=== PATIENT | female | born 1945 | race Caucasian/White ===

== ENCOUNTER → 2023-07-22 07:06 | Outpatient (REF) | payer MEDICARE, SELFPAY ==
[2023-07-22 09:05] LABS: % Basophils 0.7 % (0-2); % Eosinophils 3.7 % (0-6); % Immature Granulocytes 0.1 % (0-0.5); % Lymphocytes 28.7 % (20.5-51.1); % Monocytes 8.4 % (1.7-9.3); % Neutrophils 58.4 % (42.2-75.2); Absolute Basophils 0.1 10^3/uL (0-0.2); Absolute Eosinophils 0.3 10^3/uL (0-0.7); Absolute Lymphocytes 1.9 10^3/uL (1.2-3.4); Absolute Monocytes 0.6 10^3/uL (0.1-0.6); Absolute Neutrophils 3.9 10^3/uL (1.4-6.5); Hematocrit 36.7 % (37.0-47.0); Hemoglobin 11.8 g/dL (12.0-16.0); Mean Corp Hgb Conc. 32.2 g/dL (33.0-37.0); Mean Corpuscular Hgb 27.8 pg (27.0-31.0); Mean Corpuscular Volume 86.4 fL (81.0-99.0); Mean Platelet Volume 10.7 fL (7.4-10.4); Nucleated Red Blood Cells % 0 %; Platelet Count 362 10^3/uL (130-400); Red Blood Cell Count 4.25 10^6/uL (4.20-5.40); Red Cell Dist. Width 13.3 % (11.5-14.5); White Blood Cell Count 6.7 10^3/uL (4.8-10.8)
[2023-07-22 10:00] LABS: TSH 0.13 uIU/ml (0.47-4.68)
== END ==
LOC: REG 07:06
PROVIDERS: ATTENDING PHYSICIAN Internal Medicine
DX: I10 Essential (primary) hypertension (principal)
CPT/HCPCS: 36415; 84443; 85025

== ENCOUNTER → 2023-08-16 07:46 | Outpatient (REF) | payer MEDICARE, SELFPAY ==
[2023-08-16 09:06] LABS: ALT (SGPT) 15 U/L (0-35); AST (SGOT) 27 U/L (14-36); Alkaline Phosphatase 94 U/L (38-126); Blood Urea Nitrogen 21 mg/dl (7-17); Carbon Dioxide 28 mmol/L (22-30); Chloride 102 mmol/L (98-107); Glucose 97 mg/dl (70-99); HDL Cholesterol 65 mg/dl; LDL Cholesterol, Calculated 126 mg/dl; Potassium 3.8 mmol/L (3.5-5.1); Sodium 138 mmol/L (135-145); Total Bilirubin 0.5 mg/dl (0.2-1.3); Total Cholesterol 214 mg/dl (50-199); Total Protein 7.5 g/dl (6.3-8.2); Triglyceride 118 mg/dl (10-149); Very Low Density Lipoprotein 23 mg/dl (0-30); eGFR 58.39
== END ==
LOC: REG 07:46
PROVIDERS: ATTENDING PHYSICIAN Internal Medicine Cardiovascular Disease
DX: I10 Essential (primary) hypertension (principal)
CPT/HCPCS: 36415; 80053; 80061

== ENCOUNTER 2023-09-05 04:05 | Emergency (ER) | payer MEDICARE, SELFPAY ==
[2023-09-05 04:08] VITALS: BP 115/76
[2023-09-05 04:44] LABS: COVID-19 Antigen Negative (Negative)
--- NOTE | 2023-09-05 04:48 | ED.GENMED ---
History of Present Illness
<NIA Murray - Last Filed: 09/05/23 05:17>
General
Chief Complaint: Cold/Flu/URI Symptoms
Source: patient and spouse
Exam Limitations: none
Time Seen by Provider: 09/05/23 04:23
Travel History
Have you had any contact with someone who has COVID-19?: No
Do you have any symptoms of coronavirus? Fever > 100 degrees, chills, cough, shortness of breath, sore throat, loss of taste or smell, muscle aches, or headache?: No
History of Present Illness
History of Present Illness:
This is a 78 YO F with PMH of hypothyroidism managed with Levothyroxine and HTN managed with Amlodipine presenting here today for constant productive cough x 4 days. Pt states her symptoms started four days ago, including a productive cough and
congestion. Pt describes the mucus as yellow. She tried taking Delsym without relief. She complains of diarrhea after taking Delsym. She did not take Tylenol or Motrin. Denies CP, SOB, N and V. Denies abdominal pain.
Pt reports her had the same symptoms, but less severe, which resolved with Delsym over the past week.
Review of Systems
<NIA Murray - Last Filed: 09/05/23 05:17>
Review of Systems
Constitutional: Reports fever
EENT: Reports sore throat
Respiratory: Reports cough
Cardiac: Reports no symptoms
ABD/GI: Reports diarrhea
: Reports no symptoms
Musculoskeletal: Reports no symptoms
Skin: Reports no symptoms
Neurological: Reports no symptoms
Endocrine: Reports no symptoms
Hematologic/Lymphatic: Reports no symptoms
Psychiatric: Reports no symptoms
Phy Exam
<NIA Murray - Last Filed: 09/05/23 05:17>
Physical Exam
Physical Exam:
Rhonchi heard in left lower lobe. Normal S1 and S1, no murmurs.
General Physical Exam
General Presentation: well appearing
General age: appears stated age
General Habitus: normal
General Mental: alert
General Hydration: appears well hydrated
Cardiovascular Exam
Cardiovascular Exam: regular rate/rhythm
Pulmonary Exam
Cough: productive cough
Breath Sounds: Rhonchi: left lower (LL Lobe)
Course
<Alexia Lang [facility] - Last Filed: 09/05/23 05:17>
Orders/Labs/Results
Orders:
Orders
09/05/23 04:16
COVID-19 Antigen Urgent
Source: Nasal Swab
09/05/23 04:44
CR Chest - 2 Views Urgent
Comment:
Reason For Exam: COUGH, FEVER X 4 DAYS
09/05/23 05:02
Acetaminophen [Tylenol] 650 mg PO NOW STA
Ipratropium/Albuterol Sulfate [Duoneb] 3 ml INH R NOW STA
09/05/23 05:56
Sputum Culture [Respiratory Culture/Gram Stain] Urgent
YARA Source: Sputum
Specimen Description:
Date Specimen was Collected: 09/05/23
Time Specimen was Collected: 05:04
09/05/23 06:27
Azithromycin [Zithromax] 500 mg PO NOW STA
Vital Signs
Initial and Last Documented VS:
Initial Vital Signs
Temp Pulse Resp BP Pulse Ox
100.5 F H 115 18 115/76 93
09/05/23 04:08 09/05/23 04:08 09/05/23 04:08 09/05/23 04:08 09/05/23 04:08
Last Documented Vital Signs
Temp Pulse Resp BP Pulse Ox
97.8 F 97 18 113/65 93
09/05/23 06:05 09/05/23 06:05 09/05/23 04:08 09/05/23 06:00 09/05/23 06:00
<Shari Acosta DO - Last Filed: 09/05/23 06:33>
Orders/Labs/Results
Orders:
Orders
09/05/23 04:16
COVID-19 Antigen Urgent
Source: Nasal Swab
09/05/23 04:44
CR Chest - 2 Views Urgent
Comment:
Reason For Exam: COUGH, FEVER X 4 DAYS
09/05/23 05:02
Acetaminophen [Tylenol] 650 mg PO NOW STA
Ipratropium/Albuterol Sulfate [Duoneb] 3 ml INH R NOW STA
09/05/23 05:56
Sputum Culture [Respiratory Culture/Gram Stain] Urgent
YARA Source: Sputum
Specimen Description:
Date Specimen was Collected: 09/05/23
Time Specimen was Collected: 05:04
09/05/23 06:27
Azithromycin [Zithromax] 500 mg PO NOW STA
Vital Signs
Initial and Last Documented VS:
Initial Vital Signs
Temp Pulse Resp BP Pulse Ox
100.5 F H 115 18 115/76 93
09/05/23 04:08 09/05/23 04:08 09/05/23 04:08 09/05/23 04:08 09/05/23 04:08
Last Documented Vital Signs
Temp Pulse Resp BP Pulse Ox
97.8 F 97 18 113/65 93
09/05/23 06:05 09/05/23 06:05 09/05/23 04:08 09/05/23 06:00 09/05/23 06:00
<NIA Murray - Last Filed: 09/05/23 05:17>
MDM/Problems Addressed
Differential Diagnosis Includes:
COVID, FLU, Pneumoniae, Upper respiratory tract infection, Bronchitis
MDM/Problems Addressed:
Cold symptoms/cough x 4 days
<NIA Murray - Last Filed: 09/05/23 05:17>
*Critical Care Note
Total Time (30-74mins, 75-104mins- exclusive of procedures): Not Applicable
<Shari Acosta DO - Last Filed: 09/05/23 06:33>
*Radiology
Radiology exam reviewed: preliminary read by ED provider (Chest x-ray consistent with right lower lobe infiltrate, new compared to previous.)
*Pulse Oximetry
Patient hypoxic: no
ED Attending Note
<NIA Murray - Last Filed: 09/05/23 05:17>
-
Portions of this chart may have been created with voice recognition software.� Occasional wrong word or��sound alike� substitutions may have occurred due to the inherent limitations of voice recognition software.
<Shari Acosta DO - Last Filed: 09/05/23 06:33>
ED Attending Note
Patient seen and examined by attending physician: Yes
I performed the substantive portion of visit, reviewed & personally made and approve the management plan that is documented in note by myself or CAMI.: Yes
I performed a history and physical exam of patient and discussed management with resident, I reviewed resident's note and agree with documented findings and plan of care.: Yes
ED Attending Note:
This is a 78-year-old woman who has history of hypertension, hypothyroidism who complains of 4-day history of URI symptoms, nasal congestion, rhinorrhea, mild sore throat, recurrent hacking cough occasionally productive of yellowish phlegm. She has
had intermittent chills and aches but no chest pain, no abdominal pain, no shortness of breath, no dizziness or lightheadedness.
Her had similar URI symptoms that began several days prior to onset of her symptoms. He has since recovered.
She presents to the ED tonight for evaluation stating 'I am tired of coughing'
No prior history of asthma nor COPD. Lifelong non-smoker. No recent travel nor recent antibiotic use. She denies leg pain or swelling. No dyspnea on exertion.
Cough has been persistent throughout the day and not necessarily worse at nighttime.
No significant relief with [id number] cough syrup.
GENERAL: 78-year-old woman appears her stated age, awake and alert, pleasant, appears in no acute distress. Rare brief nonproductive cough is noted. Able to speak in full sentences. is accompanying. Low-grade fever noted.
EYE: pupils equal and reactive. anicteric
NECK: Supple, nontender, no meningismus, no significant adenopathy.
ENT: posterior pharynx has scant punctate injection without edema nor exudate, scant clear postnasal drip is noted, oral mucosa is moist. TM clear b/l, nares have mildly boggy turbinates with mild clear to pearly rhinorrhea.
CARDIAC: Regular rate and rhythm. no murmur.
LUNGS: no acute respiratory distress, moderate left basilar rhonchi, fine rhonchi right base.
ABDOMEN: Soft, nondistended, without focal tenderness, no r/g, no cvat. normoactive BS.
NEUROLOGICAL: Alert and oriented x3, no focal neuro deficits. Gait is steady.
SKIN: Warm and dry, normal color, skin intact. No rash.
MUSCULOSKELETAL: No C/C/E. peripheral pulses are full and equal b/l. No palpable tenderness.
PSYCH: Normal and appropriate interaction.
History and physical exam concerning for left lower lobe pneumonia.
Rapid COVID is pending. Will give Tylenol for fever
, DuoNeb nebulizer for cough and will check chest x-ray.
09/05/2023 0629 AM
Patient feeling improved after nebulizer treatment, improvement in cough.
Chest x-ray consistent with streaky infiltrate right lower lobe/posteriorly.
Will initiate a course of Zithromax for community-acquired pneumonia. Will add albuterol inhaler for as needed cough.
Recommend she stay well-hydrated on a daily basis, Tylenol as needed for fever.
Prompt follow-up with PCP for recheck.
Return precautions discussed.
Discharge Plan
Departure
Patient Disposition: Home (Routine Discharge)
Date of Disposition: 09/05/23
Time of Disposition: 06:30
Patient with high blood pressure during this ER visit?: No
Condition: Good
Discharge Problem:
Community acquired pneumonia
Instructions: Community-acquired pneumonia in adults
Prescriptions:
New
azithromycin [Zithromax TRI-ELIZABETH] 500 mg tablet
500 mg PO DAILY 3 Days Qty: 3 0RF
albuterol sulfate [ProAir HFA] 90 mcg/actuation Hfa Aerosol Inhaler
2 puff INHALATION Q4HPRN PRN (Reason: shortness of breath/cough) Qty: 90 0RF
Rx Instructions:
Dispense with spacer
No Action
amlodipine 5 mg Tablet
5 mg PO DAILY
levothyroxine 75 mcg Tablet
75 mcg PO DAILY
Referrals:
PRIVATE,PHYSICIAN [Family Provider] - Call in 1-3 days for appt
Interventions
Interventions:
*Risk Screen - Suicide Last Done: 09/05/23 04:08
*General Assessment Last Done: 09/05/23 04:08
*Neglect/Abuse Screening Last Done: 09/05/23 04:08
ED- Fall Risk Assessment Last Done: 09/05/23 04:08
*ED COVID-19 Vaccine History Last Done: 09/05/23 04:08
ED- Pulmonary Assessment Last Done: 09/05/23 06:06
Discharge Date and Time
Print Language: CENTRAL AFRICAN
[2023-09-05 05:01] VITALS: BMI 19.0
[2023-09-05] MEDS: DUONEB 3 ML INH (05:13)
[2023-09-05] MEDS: TYLENOL 650 MG PO (05:13)
[2023-09-05 05:58] VITALS: BP 114/57
[2023-09-05 06:00] VITALS: BP 113/65
[2023-09-05] MEDS: ZITHROMAX 500 MG PO (06:51)
== END 2023-09-05 06:57 | disposition home or self-care (01) ==
LOC: EMR 04:05
PROVIDERS: EMERGENCY PHYSICIAN Emergency Medicine
DX: J18.9 Pneumonia, unspecified organism (principal); R05.9 Cough, unspecified; J34.89 Other specified disorders of nose and nasal sinuses; Z11.52 Encounter for screening for COVID-19
CPT/HCPCS: 99283; 94640; 71046; 87070; 87205; 87811

== ENCOUNTER → 2023-10-22 07:56 | Outpatient (REF) | payer MEDICARE, SELFPAY | LOC: HWRAD 07:56 | PROVIDERS: ATTENDING PHYSICIAN Internal Medicine | DX: I10 Essential (primary) hypertension (principal); J18.9 Pneumonia, unspecified organism | CPT/HCPCS: 71046 ==

== ENCOUNTER → 2023-11-14 15:47 | Outpatient (REF) | payer MEDICARE, SELFPAY | LOC: HWRCS 15:47 | PROVIDERS: ATTENDING PHYSICIAN Internal Medicine Cardiovascular Disease; FAMILY PHYSICIAN Internal Medicine | DX: I36.1 Nonrheumatic tricuspid (valve) insufficiency (principal) | CPT/HCPCS: 93306 ==

== ENCOUNTER → 2023-12-06 06:52 | Outpatient (REF) | payer MEDICARE, SELFPAY | LOC: MRI 06:52 | PROVIDERS: ATTENDING PHYSICIAN Internal Medicine | DX: R47.89 Other speech disturbances (principal) | CPT/HCPCS: 70551 ==

== ENCOUNTER → 2023-12-18 10:12 | Outpatient (REF) | payer MEDICARE, SELFPAY ==
[2023-12-18 12:34] LABS: % Basophils 0.3 % (0-2); % Eosinophils 3.8 % (0-6); % Immature Granulocytes 0.4 % (0-0.5); % Lymphocytes 19.6 % (20.5-51.1); % Monocytes 11.5 % (1.7-9.3); % Neutrophils 64.4 % (42.2-75.2); Absolute Eosinophils 0.3 10^3/uL (0-0.7); Absolute Lymphocytes 1.5 10^3/uL (1.2-3.4); Absolute Monocytes 0.9 10^3/uL (0.1-0.6); Absolute Neutrophils 4.8 10^3/uL (1.4-6.5); Hematocrit 36.5 % (37.0-47.0); Hemoglobin 12.3 g/dL (12.0-16.0); Mean Corp Hgb Conc. 33.7 g/dL (33.0-37.0); Mean Corpuscular Hgb 28.5 pg (27.0-31.0); Mean Corpuscular Volume 84.7 fL (81.0-99.0); Mean Platelet Volume 10.2 fL (7.4-10.4); Nucleated Red Blood Cells % 0 %; Platelet Count 302 10^3/uL (130-400); Red Blood Cell Count 4.31 10^6/uL (4.20-5.40); Red Cell Dist. Width 13.4 % (11.5-14.5); White Blood Cell Count 7.4 10^3/uL (4.8-10.8)
[2023-12-18 12:40] LABS: Erythrocyte Sed Rate 49 mm/hour (0-20)
[2023-12-18 13:58] LABS: Vitamin B12 319 pg/ml (239-931)
[2023-12-18 16:31] LABS: Folate 6.6 ng/ml (2.76-20)
[2023-12-20 12:42] LABS: Syphilis/T. pallidum Ab Reflex Negative (Negative)
== END ==
LOC: HWLAB 10:12
PROVIDERS: ATTENDING PHYSICIAN Internal Medicine
DX: R41.3 Other amnesia (principal)
CPT/HCPCS: 36415; 82607; 82746; 84443; 85025; 85652; 86780

== ENCOUNTER → 2023-12-25 16:18 | Outpatient (REF) | payer MEDICARE, SELFPAY | LOC: RAD 16:18 | PROVIDERS: ATTENDING PHYSICIAN Internal Medicine; REFERRING PHYSICIAN Internal Medicine Cardiovascular Disease | DX: J18.9 Pneumonia, unspecified organism (principal) | CPT/HCPCS: 71250 ==

== ENCOUNTER → 2024-01-02 10:07 | Outpatient (REF) | payer MEDICARE, SELFPAY | LOC: REG 10:07 | PROVIDERS: ATTENDING PHYSICIAN Internal Medicine | DX: R05.9 Cough, unspecified (principal) | CPT/HCPCS: 87102; 87116; 87205; 87206 ==

== ENCOUNTER → 2024-01-11 09:25 | Outpatient (REF) | payer MEDICARE, SELFPAY | LOC: REG 09:25 | PROVIDERS: ATTENDING PHYSICIAN Internal Medicine | DX: R05.9 Cough, unspecified (principal) | CPT/HCPCS: 87070; 87077; 87102; 87116; 87185; 87205; 87206 ==

== ENCOUNTER → 2024-03-23 06:28 | Outpatient (REF) | payer MEDICARE, SELFPAY | LOC: RAD 06:28 | PROVIDERS: ATTENDING PHYSICIAN Physician Assistant; FAMILY PHYSICIAN Internal Medicine | DX: R93.89 Abnormal findings on diagnostic imaging of other specified body structures (principal) | CPT/HCPCS: 71250 ==

== ENCOUNTER → 2024-04-13 07:52 | Outpatient (REF) | payer MEDICARE, SELFPAY | LOC: REG 07:52 | PROVIDERS: ATTENDING PHYSICIAN Internal Medicine | DX: J47.9 Bronchiectasis, uncomplicated (principal); R05.8 Other specified cough | CPT/HCPCS: 87070; 87205 ==

== ENCOUNTER → 2024-07-29 07:59 | Outpatient (REF) | payer MEDICARE, SELFPAY ==
[2024-07-29 08:52] LABS: % Basophils 0.5 % (0-2); % Eosinophils 2.5 % (0-6); % Immature Granulocytes 0.3 % (0-0.5); % Lymphocytes 25.2 % (20.5-51.1); % Monocytes 7.4 % (1.7-9.3); % Neutrophils 64.1 % (42.2-75.2); Absolute Eosinophils 0.2 10^3/uL (0-0.7); Absolute Monocytes 0.6 10^3/uL (0.1-0.6); Hemoglobin 12.8 g/dL (12.0-16.0); Mean Corpuscular Hgb 26.8 pg (27.0-31.0); Mean Corpuscular Volume 83.9 fL (81.0-99.0); Mean Platelet Volume 9.4 fL (7.4-10.4); Nucleated Red Blood Cells % 0 %; Platelet Count 290 10^3/uL (130-400); Red Blood Cell Count 4.77 10^6/uL (4.20-5.40); Red Cell Dist. Width 15.1 % (11.5-14.5); White Blood Cell Count 7.7 10^3/uL (4.8-10.8)
[2024-07-29 09:47] LABS: ALT (SGPT) 32 U/L (0-35); AST (SGOT) 34 U/L (14-36); Albumin 4.2 g/dl (3.5-5.0); Alkaline Phosphatase 101 U/L (38-126); Blood Urea Nitrogen 27 mg/dl (7-17); Calcium 9.7 mg/dl (8.4-10.2); Carbon Dioxide 27 mmol/L (22-30); Chloride 105 mmol/L (98-107); Glucose 96 mg/dl (70-99); HDL Cholesterol 72 mg/dl; LDL Cholesterol, Calculated 123 mg/dl; Potassium 4.1 mmol/L (3.5-5.1); Sodium 141 mmol/L (135-145); Total Bilirubin 0.5 mg/dl (0.2-1.3); Total Cholesterol 208 mg/dl (50-199); Total Protein 7.9 g/dl (6.3-8.2); Triglyceride 67 mg/dl (10-149); Very Low Density Lipoprotein 13 mg/dl (0-30); eGFR > 60.00
[2024-07-29 16:50] LABS: TSH Reflex To Free T4 1.64 uIU/ml (0.47-4.68)
== END ==
LOC: REG 07:59
PROVIDERS: ATTENDING PHYSICIAN Internal Medicine Cardiovascular Disease; FAMILY PHYSICIAN Internal Medicine
DX: R41.3 Other amnesia (principal); E78.2 Mixed hyperlipidemia
CPT/HCPCS: 36415; 80053; 80061; 84443; 85025

== ENCOUNTER → 2024-11-19 16:09 | Outpatient (REF) | payer MEDICARE, SELFPAY | LOC: HWRAD 16:09 | DX: J06.9 Acute upper respiratory infection, unspecified (principal); R06.2 Wheezing | CPT/HCPCS: 71046 ==

== ENCOUNTER → 2024-12-25 07:09 | Outpatient (REF) | payer MEDICARE, SELFPAY | LOC: HWRAD 07:09 | DX: J18.9 Pneumonia, unspecified organism (principal) | CPT/HCPCS: 71046 ==

== ENCOUNTER → 2025-02-19 15:29 | Outpatient (REF) | payer MEDICARE, SELFPAY | LOC: HWRAD 15:29 | DX: R05.3 Chronic cough (principal) | CPT/HCPCS: 71046 ==

== ENCOUNTER → 2025-02-22 06:47 | Outpatient (REF) | payer MEDICARE, SELFPAY ==
[2025-02-22 09:52] LABS: Hematocrit 42.1 % (37.0-47.0); Hemoglobin 12.9 g/dL (12.0-16.0); Mean Corp Hgb Conc. 30.6 g/dL (33.0-37.0); Mean Corpuscular Volume 88.3 fL (81.0-99.0); Nucleated Red Blood Cells % 0 %; Platelet Count 296 10^3/uL (130-400); Red Cell Dist. Width 13.5 % (11.5-14.5)
[2025-02-22 10:22] LABS: ALT (SGPT) 22 U/L (0-35); AST (SGOT) 28 U/L (14-36); Albumin 4.0 g/dl (3.5-5.0); Alkaline Phosphatase 73 U/L (38-126); Blood Urea Nitrogen 34 mg/dl (7-17); Calcium 10.1 mg/dl (8.4-10.2); Carbon Dioxide 27 mmol/L (22-30); Chloride 106 mmol/L (98-107); Glucose 90 mg/dl (70-99); Potassium 3.9 mmol/L (3.5-5.1); Sodium 139 mmol/L (135-145); Total Protein 7.9 g/dl (6.3-8.2); Very Low Density Lipoprotein 14 mg/dl (0-30); eGFR 51.43
[2025-02-22 10:29] LABS: HDL Cholesterol 64 mg/dl; LDL Cholesterol, Calculated 131 mg/dl
[2025-02-22 10:31] LABS: TSH 2.22 uIU/ml (0.47-4.68)
== END ==
LOC: HWLAB 06:47
DX: I10 Essential (primary) hypertension (principal); E78.2 Mixed hyperlipidemia; E03.9 Hypothyroidism, unspecified
CPT/HCPCS: 36415; 80053; 80061; 84439; 84443; 85025